=== PATIENT | male | born 1980 | race Caucasian/White ===

== ENCOUNTER 2023-03-10 11:54 | Outpatient (CLI) | payer OTHER ==
--- NOTE | 2023-03-10 13:27 | MRI Report ---
PROCEDURE: CERVICAL SPINE WO INDICATIONS: MONONEUROPATHY TECHNIQUE: Noncontrast sagittal T1 spin echo and T2 fast spin echo, sagittal STIR, foraminal oblique sagittal T2 fast spin echo, and axial gradient echo or T2 fast spin echo through the cervical spine. COMPARISON: None. FINDINGS: Image quality: Diagnostic, with note made of motion artifact. Alignment and Curvature: There is normal bony alignment. Bone Marrow: Marrow demonstrates normal overall signal. Spinal Cord: Visualized spinal cord has normal size and signal. No cerebellar tonsillar herniation. Paraspinous Soft Tissues: No paravertebral masses. Prevertebral soft tissues are normal in thicknes s. C2-C3: Normal in appearance. C3-C4: No significant abnormality is seen. C4-C5: The disc height is well-preserved. There is loss of disc signal seen. Mild disc osteophyte complex is seen. Mild to moderate bilateral neuroforaminal narrowing can be seen. No significant megan tral canal narrowing is seen. C5-C6: Mild to moderate loss of disc height and disc signal can be seen. Moderate disc osteophyte co mplex is seen, which is eccentric to the right. There is a central/left disc osteophyte protrusion, a s on series 4 image 25. Moderate facet hypertrophy is seen. Moderate to severe bilateral neuroforami nal narrowing can be seen, right worse than left. At least moderate central canal narrowing is seen. Associated mass effect is seen upon the ventral spinal cord. C6-C7: Mild loss of disc height and disc signal are seen. Moderate disc osteophyte complex is seen, which is eccentric to the right. Uncovertebral joint hypertrophy is seen at this level. Mild facet hypertrophy is seen. There is moderate to severe bilateral neuroforaminal narrowing seen. Moderate c entral canal narrowing is seen. Associated mass effect is seen upon the ventral spinal cord. C7-T1: The disc height is well-preserved. There is loss of disc signal seen. Moderate disc osteophy te complex is seen. Mild facet hypertrophy is seen. Mild bilateral neural foraminal narrowing is seen. The central canal is widely patent. IMPRESSION: Cervical spine degenerative changes are seen, which are worst at the C5-C6 and C6-C7 levels. Reviewed by: Soto Juarez MD on 03/10/2023 12:26 PM FREDRICK Approved by: Soto Juarez MD on 03/10/2023 12:26 PM [id number] Station ID: [id number]
== END 2023-03-10 11:55 | disposition home or self-care (01) ==
LOC: DI 11:54
PROVIDERS: ATTEND Internal Medicine
DX: M47.812 Spondylosis without myelopathy or radiculopathy, cervical region (principal); M50.322 Other cervical disc degeneration at C5-C6 level; M48.02 Spinal stenosis, cervical region

== ENCOUNTER 2024-04-01 06:43 | Outpatient (CLI) | payer OTHER ==
--- NOTE | 2024-04-01 17:01 | Ultrasound Report ---
PROCEDURE: Renal (Retroperitoneal) INDICATIONS: CKD, OBESITY TECHNIQUE: Real-time scanning was performed of the retroperitoneal organs, with image documentation. COMPARISON: None. FINDINGS: Kidneys: Kidneys are normal in size. Right kidney measures 12.4 cm long; left kidney measures 12.6 cm long. Right renal cortical thickness is 1.1 cm; left renal cortical thickness is 1.3 cm. No theo d masses, hydronephrosis, or nephrolithiasis. Bladder: Pre-void bladder volume is 308 mL. Post-void residual is 3.4 mL. Pre-void images demonstr ate no intraluminal masses or stones. On pre-void images, bilateral ureteral jets are noted with col or Doppler interrogation. (Of note, ureteral jets may not be detectable in up to 25% of cases due to insufficient differences in specific gravity between ureteral and bladder urine). Miscellaneous: No free abdominal fluid. Prostate measures 4.2 x 3.2 x 3.4 cm with volume of 23.98 m L. IMPRESSION: 1.No hydronephrosis or nephrolithiasis bilaterally. 2.Normal sonographic appearance of the bladder with postvoid residual of 3.4 mL. Reviewed by: Pop Ho MD on 04/01/2024 4:59 PM PDT Approved by: Pop Ho MD on 04/01/2024 4:59 PM PDT Station ID: [id number]
--- NOTE | 2024-04-01 17:02 | Ultrasound Report ---
PROCEDURE: Abdomen Limited INDICATIONS: CKD, OBESITY TECHNIQUE: Real-time focused scanning was performed of the abdomen, with image documentation. COMPARISONS: None. FINDINGS: Liver: Liver is normal in size and homogeneous in echotexture. Liver parenchyma is diffusely echogen ic. Main portal vein is patent with hepatopedal flow. Gallbladder: No gallstones, sludge, wall thickening or pericholecystic edema. Biliary ducts: Intrahepatic bile ducts are non-dilated. Extrahepatic bile duct caliber measures 5 m m. Normal is 6-7 mm or less in diameter, or 10 mm or less post-cholecystectomy. Pancreas: Visualized portions of the pancreas are sonographically normal. Right kidney: Please see same-day renal ultrasound. IVC: Intrahepatic inferior vena cava is patent. Miscellaneous: No free abdominal fluid. IMPRESSION: 1.Liver parenchyma is diffusely echogenic which may be seen in the setting of parenchymal disease suc h as steatosis. 2.Normal gallbladder. Reviewed by: Pop Ho MD on 04/01/2024 5:00 PM PDT Approved by: Pop Ho MD on 04/01/2024 5:00 PM PDT Station ID: [id number]
== END 2024-04-01 06:44 | disposition home or self-care (01) ==
LOC: DI 06:43
PROVIDERS: ATTEND Internal Medicine
DX: N18.2 Chronic kidney disease, stage 2 (mild) (principal); N52.9 Male erectile dysfunction, unspecified; E66.9 Obesity, unspecified